=== PATIENT | male | born 1975 | race Hispanic/Latino ===

== ENCOUNTER 2018-03-15 07:50 | Inpatient (IN) | payer OTHER ==
--- NOTE | 2018-03-15 08:27 | ED PDOC ---
Arrival/HPI - General Chief Complaint: Weakness/Neurological Deficit Time Seen by Provider: 03/15/18 08:03 Historian: Patient - History of Present Illness Narrative History of Present Illness (Text): 03/15/18 08:15 42 year old male, whose PMH includes hypertension, diabetes, CVA and lupus, who presents to the emergency department s/p being diagnosed with TIA by medic in cruise [place]. Patient reports one day ago at 01:50 PM he began having slurred speech, left facial droop, left arm weakness, and left leg weakness. Patient explains he was returning from [facility] and captain was notified by his family member who explained to them he was returning "as fast as they can go". Family member states patient symptoms have improved compared to yesterday. Patient denies shortness of breath, chest pain, headache, abdominal pain, nausea, vomiting, diarrhea, dizziness, or other complaints. Time/Duration: 24 hours Symptom Onset: Sudden Symptom Course: Improving Past Medical History - Provider Review Nursing Documentation Reviewed: Yes - Travel History If Yes, travel location?: [facility] - Cardiac Hx Cardiac Disorders: Yes Hx Hypertension: Yes - Pulmonary Hx Respiratory Disorders: No - Neurological Hx Neurological Disorder: Yes HX Cerebrovascular Accident: Yes - HEENT Hx HEENT Disorder: No - Renal Hx Renal Disorder: No - Endocrine/Metabolic Hx Endocrine Disorders: Yes Hx Systemic Lupus Erythematosus: Yes - Hematological/Oncological Hx Blood Disorders: No - Integumentary Hx Dermatological Disorder: No - Musculoskeletal/Rheumatological Hx Musculoskeletal Disorders: No - Gastrointestinal Hx Gastrointestinal Disorders: No - Genitourinary/Gynecological Hx Genitourinary Disorders: No - Psychiatric Hx Psychophysiologic Disorder: No Hx Substance Use: No - Surgical History Other/Comment: Achilles tendon repair Family/Social History - Physician Review Nursing Documentation Reviewed: Yes Family/Social History: Unknown Family HX Smoking Status: Never Smoked Hx Alcohol Use: Yes Frequency of alcohol use: Socially Hx Substance Use: No Allergies/Home Meds Allergies/Adverse Reactions: Allergies No Known Allergies Allergy (Verified 03/15/18 12:36) Home Medications: Home Meds Medication Instructions Recorded Confirmed Lisinopril [Zestril] 40 mg PO DAILY 03/15/18 03/15/18 Allopurinol [Zyloprim] 80 mg PO DAILY 03/16/18 03/16/18 Aspirin [Ecotrin] 81 mg PO DAILY 03/16/18 03/16/18 Atorvastatin Calcium [Lipitor] 80 mg PO DIN 03/16/18 03/16/18 Clopidogrel [Plavix] 75 mg PO DAILY 03/16/18 03/16/18 Hydroxychloroquine Sulfate 100 mg PO DAILY 03/16/18 03/16/18 [Plaquenil] amLODIPine [Norvasc] 10 mg PO DAILY 03/16/18 03/16/18 Review of Systems - Physician Review All systems were reviewed & negative as marked: Yes - Review of Systems Respiratory: absent: SOB Cardiovascular: absent: Chest Pain Neurological: Focal Weakness (left sided arm and leg), Speech Changes (slurred speech), Facial Droop (left facial droop ). absent: Headache, Dizziness Physical Exam - Physical Exam Narrative Physical Exam (Text): 03/15/18 Gen: VS reviewed, alert, well developed, well nourished, nontoxic, mild distress. ENT: normal pharynx. Eye: EOMI, PERRL. Neck: no JVD, supple, no adenopathy. CV: regular rate, regular rhythm, no rubs, no murmur, no gallops, S1, S2, pulses equal and strong. Pulm: no distress, clear to auscultation, no wheeze, no rhonchi, breath sounds equal, no rales. Abd: soft, nontender, no guarding, no rebound, no rigidity, normal bowel sounds. Ext: no edema. Skin: good color, no rash, no cyanosis. Psych: responds appropriately to questions, normal affect. Neuro: (+) left lower facial droop. (+) motor left arm 3/5. (+) mild drift. (+) dysmetria. oriented x 3, CN2-12 intact grossly, motor intact, sensation intact. Vital Signs Reviewed: Yes Vital Signs Temp Pulse Resp BP Pulse Ox 03/15/18 12:38 97.9 F 65 18 114/68 03/15/18 10:46 65 18 114/68 98 03/15/18 10:26 72 114/78 03/15/18 07:50 97.9 F 66 18 153/106 H 99 Temperature: Afebrile Blood Pressure: Hypertensive Pulse: Regular Respiratory Rate: Normal Appearance: Positive for: Well-Appearing, Non-Toxic, Comfortable Pain Distress: None Mental Status: Positive for: Alert and Oriented X 3 Finger Stick Blood Glucose: 89 Medical Decision Making ED Course and Treatment: 03/15/18 Impression: 42 year old male with left lower facial droop, motor left arm 3/5, mild drift, and dysmetria complaining of TIA diagnosis given by cruise ship medic. Differential Diagnosis included but are not limited to: TIA Plan: -- CT head -- Labs -- Chest X-ray -- Reassess and disposition Progress Notes: 03/15/18 09:10 CT Head: Creator : Bree Parker MD FINDINGS: HEMORRHAGE:No intracranial hemorrhage. BRAIN:There are well-circumscribed focal low-attenuation areas in the right posterior frontal, anterior parietal lobe, basal ganglia, genu and posterior limb of internal capsule. There is cystic encephalomalacia in the right parietal and temporal lobes and smaller area of cystic encephalomalacia in the left posterior occipital lobe. There is no mass, mass effect or abnormal extra- axial fluid collection. VENTRICLES:The ventricles are normal in size, shape and configuration. CALVARIUM:The skull base and calvarium are normal. PARANASAL SINUSES:There is moderate chronic anterior ethmoid sinusitis. The remaining included paranasal sinuses are predominantly clear. MASTOID AIR CELLS:Predominantly clear. OTHER FINDINGS: None. IMPRESSION: Focal areas of low density in the right posterior frontal and anterior parietal lobes, basal ganglia, genu and posterior limb of internal capsule are most compatible with subacute right MCA territory infarctions. An MRI of the brain without intravenous contrast would be helpful for definitive evaluation and determining the age of the infarctions. Cystic encephalomalacia in the right parietal and temporal lobes, sequela of remote MCA territory infarction. Focal cystic encephalomalacia in the left posterior parietal lobe, sequela of remote left FIRE PREVENTION INSPECTOR territory infarction. Important findings were discussed with Dr. Dominik Samson in the ER on 03/15/2018 at 9:05 a.m. 03/15/18 09:[address] Quarles, who is aware of plan and accepts patient into admission. Would like ICU/admission and Dr. Best for neurology consultation. 03/15/18 09:[address] best, neurology, would like MRi brain, carotid doppler , agrees with aspirin for neuroprotection 03/15/18 09:40 Chest X-ray: Creator : Bree Parker MD FINDINGS: LUNGS: The lungs are well inflated and clear. PLEURA: No significant pleural effusion identified, no pneumothorax apparent. CARDIOVASCULAR: Normal. OSSEOUS STRUCTURES: No significant abnormalities. VISUALIZED UPPERABDOMEN: Normal. OTHER FINDINGS: None. IMPRESSION: No active pulmonary disease. 03/15/18 09:44 Case was discussed with the Oleo Hasher And Renderer, who is aware or plan and agrees with emergency department management. 03/15/18 10:02 patient seen by rip sawyer, admit deferred, patient can go to telemetry 03/15/18 11:11 patient was seen for delayed presentation for acute CVA. patient presented far out of the time window for thrombolysis or mechanical thrombectomy. patient to be admitted for comprehensive CVA workup. - Lab Interpretations Lab Results: 03/15/18 06:08 03/15/18 06:08 Lab Results 03/15/18 09:20: Blood Type A POSITIVE, Antibody Screen Negative, BBK History Checked No verified bt 03/15/18 08:04: POC Glucose (mg/dL) 89 03/15/18 07:00: Triglycerides 226 H, Cholesterol 170, LDL Cholesterol Direct 84 , HDL Cholesterol 28 L 03/15/18 07:00: Hemoglobin A1c 5.7 03/15/18 06:08: Sodium 142, Potassium 4.4, Chloride 112 H, Carbon Dioxide 19 L, Anion Gap 16, BUN 26 H, Creatinine 1.4, Est GFR ( Amer) > 60, Est GFR ( Non-Af Amer) 56, Random Glucose 101, Calcium 8.5, Total Bilirubin 0.4, AST 46, ALT 58 H, Alkaline Phosphatase 63, Troponin I < 0.01, Total Protein 6.6, Albumin 3.6, Globulin 3.0, Albumin/Globulin Ratio 1.2 03/15/18 06:08: PT 11.4, INR 0.99, APTT 32.7 03/15/18 06:08: WBC 5.2, RBC 3.59, Hgb 10.5 L, Hct 31.1 L, MCV 86.6, MCH 29.2, MCHC 33.8, RDW 13.4, Plt Count 146, MPV 9.8, Gran % 62.0, Lymph % (Auto) 26.7, [place] % (Auto) 7.6 H, Eos % (Auto) 3.5, Baso % (Auto) 0.2, Gran # 3.20, Lymph # ( Auto) 1.4, [place] # (Auto) 0.4, Eos # (Auto) 0.2, Baso # (Auto) 0.01 I have reviewed the lab results: Yes - RAD Interpretation Radiology Orders: 03/15/18 08:07 CHEST PORTABLE [RAD] Stat 03/15/18 08:09 Brain [HEAD W/O CONTRAST] [CT] Stat Market Research Interviewer: Radiologist - EKG Interpretation EKG Interpretation (Text): 03/15/18 11:38 0812: sinus rhythm at 63 bpm, nml qrs, nml axis, no acute sttw abn - Medication Orders Current Medication Orders: Discontinued Medications Amlodipine Besylate (Norvasc) 5 mg PO STAT STA Stop: 03/15/18 09:58 Last Admin: 03/15/18 10:26 Dose: 5 mg MAR Pulse and Blood Pressure Document 03/15/18 10:26 GMD (Rec: 03/15/18 10:29 GMD [id number]) Pulse Pulse Rate (60-90) 72 Blood Pressure Blood Pressure (100/60-150/90) 114/78 Amlodipine Besylate (Norvasc) 5 mg PO ONCE ONE Stop: 03/15/18 15:48 Last Admin: 03/15/18 16:11 Dose: 5 mg MAR Pulse and Blood Pressure Document 03/15/18 16:11 MF (Rec: 03/15/18 16:11 MF [id number]) Pulse Pulse Rate (60-90) 60 Blood Pressure Blood Pressure (100/60-150/90) 145/100 Amlodipine Besylate (Norvasc) 10 mg PO DAILY [facility] Last Admin: 03/16/18 09:52 Dose: 10 mg MAR Blood Pressure Document 03/16/18 09:52 UM (Rec: 03/16/18 09:52 UM [id number]) Blood Pressure Blood Pressure (100/60-150/90) 149/99 Aspirin (Aspirin) 325 mg PO STAT STA Stop: 03/15/18 09:40 Last Admin: 03/15/18 10:26 Dose: 325 mg Aspirin (Aspirin) 325 mg PO DAILY [facility] Last Admin: 03/16/18 09:52 Dose: 325 mg Atorvastatin Calcium (Lipitor) 80 mg PO DIN [facility] Last Admin: 03/15/18 17:42 Dose: 80 mg Clonidine HCl (Catapres) 0.1 mg PO BID [facility] Last Admin: 03/16/18 11:34 Dose: Clonidine HCl (Catapres) 0.1 mg PO STAT STA Stop: 03/16/18 11:27 Last Admin: 03/16/18 11:41 Dose: 0.1 mg MAR Pulse and Blood Pressure Document 03/16/18 11:41 UM (Rec: 03/16/18 11:42 UM [id number]) Pulse Pulse Rate (60-90) 66 Blood Pressure Blood Pressure (100/60-150/90) 142/100 Clopidogrel Bisulfate (Plavix) 75 mg PO DAILY [facility] Last Admin: 03/16/18 11:02 Dose: 75 mg Sodium Chloride (Sodium Chloride 0.45%) 1,000 mls @ 30 mls/hr IV .Q24H [facility] Last Admin: 03/15/18 10:29 Dose: 30 mls/hr eMAR Start Stop Document 03/15/18 10:29 GMD (Rec: 03/15/18 10:29 GMD [id number]) Intravenous Solution Start Date 03/15/18 Start Time 10:29 Pneumococcal Polyvalent Vaccine (Pneumovax 23 Vaccine) 0.5 ml IM .ONCE ONE Stop: 03/15/18 13:49 NIHSS Scale ([place]) Time Performed: 08:03 - How Severe is the Stoke Baseline Level of Consciousness: 0=Alert LOC to Questions: 0=Both comments correct LOC to commands: 0=Obeys both correctly Best Gaze: 0=Normal Visual: 0=No visual loss Facial: 2=Partial (lower face paralysis) Motor Arm - Left: 1=Drift noted before 10 sec Motor Arm - Right: 0=No drift Motor Leg - Left: 0=No drift Motor Leg - Right: 0=No drift Limb Ataxia: 1=Present Upper or Lower Sensory: 0=Normal Best Language: 0=No aphasia Dysarthia: 1=Mild to moderate slurring Extinction & Inattention (Neglect): 0=Normal, no object Score: 5 Risk Level: Mod Stroke Risk rTPA Inclusion/Exclusion - Refusal of Treatment Patient Refused Treatment: No - Inclusion Criteria for Altepase Patient is 18 years or Older: Yes The Clinical Diagnosis of Ischemic Stroke That is Causing a Potentially Disabling Neurological Deficit: Yes Time of Onset is Well Established to be Less Than 270 Minute Before Treatment Would Begin: No Risk/Benefit Discussed With Patient/Family Member Present: Yes - Scribe Statement The provider has reviewed the documentation as recorded by the Liz Shelton Provider Scribe Attestation: All medical record entries made by the Scribe were at my direction and personally dictated by me. I have reviewed the chart and agree that the record accurately reflects my personal performance of the history, physical exam, medical decision making, and the department course for this patient. I have also personally directed, reviewed, and agree with the discharge instructions and disposition. Disposition/Present on Arrival - Present on Arrival Any Indicators Present on Arrival: No History of DVT/PE: No History of Uncontrolled Diabetes: No Urinary Catheter: No History of Decub. Ulcer: No History Surgical Site Infection Following: None - Disposition Have Diagnosis and Disposition been Completed?: Yes Diagnosis: CVA (cerebral vascular accident) Disposition: HOSPITALIZED Disposition Time: 09:39 Patient Plan: ICU Condition: FAIR
[2018-03-15 08:35] LABS: ALB/GLOB RATIO 1.2 (1.1-1.8); ALBUMIN 3.6 g/dL (3.0-4.8); ALT/SGPT 58 U/L (7-56); AST/SGOT 46 U/L (17-59); BLOOD UREA NITROGEN 26 mg/dL (7-21); CALCIUM 8.5 mg/dL (8.4-10.5); GFR AFRICAN-AMERICAN > 60; GFR NON-AFRICAN AMERICAN 56
[2018-03-15 08:40] LABS: BASO # 0.01 K/mm3 (0.0-2.0); BASO % 0.2 % (0.0-3.0); EOS # 0.2 (0.0-0.7); EOS % 3.5 % (1.5-5.0); GRAN # 3.2 (1.4-6.5); HEMOGLOBIN 10.5 g/dL (14.0-18.0); LYMPH # 1.4 (1.2-3.4); LYMPH % 26.7 % (22.0-35.0); MEAN CELL VOLUME 86.6 fl (80.0-105.0); MEAN CORPUSCULAR HEMOGLOBIN 29.2 pg (25.0-35.0); MEAN CORPUSCULAR HGB CONC 33.8 g/dl (31.0-37.0); MEAN PLATELET VOLUME 9.8 fl (7.0-11.0); MONO # 0.4 (0.1-0.6); MONO % 7.6 % (1.0-6.0); RBC 3.59 10^6/uL (3.5-6.1); RED CELL DISTRIBUTION WIDTH 13.4 % (11.5-14.5); WHITE BLOOD COUNT 5.2 10^3/ul (4.5-11.0)
[2018-03-15 08:42] LABS: INR 0.99 (0.93-1.08); PARTIAL THROMBOPLASTIN TIME 32.7 Seconds (25.1-36.5); PROTHROMBIN TIME 11.4 SECONDS (9.4-12.5)
[2018-03-15 08:47] LABS: TROPONIN I < 0.01 ng/mL
--- NOTE | 2018-03-15 09:08 | CT ---
Date of service: 03/15/2018 PROCEDURE: CT HEAD WITHOUT CONTRAST. HISTORY: CVA COMPARISON: None available. TECHNIQUE: Axial computed tomography images were obtained through the head/brain without intravenous contrast. Radiation dose: Total exam DLP = 976.46 mGy-cm. This CT exam was performed using one or more of the following dose reduction techniques: Automated exposure control, adjustment of the mA and/or kV according to patient size, and/or use of iterative reconstruction technique. FINDINGS: HEMORRHAGE: No intracranial hemorrhage. BRAIN: There are well-circumscribed focal low-attenuation areas in the right posterior frontal, anterior parietal lobe, basal ganglia, genu and posterior limb of internal capsule. There is cystic encephalomalacia in the right parietal and temporal lobes and smaller area of cystic encephalomalacia in the left posterior occipital lobe. There is no mass, mass effect or abnormal extra-axial fluid collection. VENTRICLES: The ventricles are normal in size, shape and configuration. CALVARIUM: The skull base and calvarium are normal. PARANASAL SINUSES: There is moderate chronic anterior ethmoid sinusitis. The remaining included paranasal sinuses are predominantly clear. MASTOID AIR CELLS: Predominantly clear. OTHER FINDINGS: None. IMPRESSION: Focal areas of low density in the right posterior frontal and anterior parietal lobes, basal ganglia, genu and posterior limb of internal capsule are most compatible with subacute right MCA territory infarctions. An MRI of the brain without intravenous contrast would be helpful for definitive evaluation and determining the age of the infarctions. Cystic encephalomalacia in the right parietal and temporal lobes, sequela of remote MCA territory infarction. Focal cystic encephalomalacia in the left posterior parietal lobe, sequela of remote left VIBRATOR EQUIPMENT TESTER territory infarction. Important findings were discussed with Dr. Dominik Samson in the ER on 03/15/2018 at 9:05 a.m.
--- NOTE | 2018-03-15 09:36 | RAD ---
Date of service: 03/15/2018 HISTORY: CVA COMPARISON: No prior. FINDINGS: LUNGS: The lungs are well inflated and clear. PLEURA: No significant pleural effusion identified, no pneumothorax apparent. CARDIOVASCULAR: Normal. OSSEOUS STRUCTURES: No significant abnormalities. VISUALIZED UPPER ABDOMEN: Normal. OTHER FINDINGS: None. IMPRESSION: No active pulmonary disease.
[2018-03-15] MEDS ORDERED: Sodium Chloride 0.45% 1,000 ML IV SCH (10:00)
[2018-03-15 10:18] LABS: HDL CHOLESTEROL 28 mg/dL (29-60)
--- NOTE | 2018-03-15 10:18 | CP.PCM.CON ---
<Kings Boyer - Last Filed: 03/15/18 10:04> History of Present Illness - History of Present Illness History of Present Illness: [facility] PGY 2 ICU Consult Note for Dr. Guthrie Mr. Thapa is a 42yo male from [place] with a PMH of CVA, Lupus (not on meds), and HTN who [place] ED [place] via [place] ambulance for symptoms of stroke. ICU is consulted for CVA vs TIA symptoms. Patient states that while on the cruise, he started experiencing left sided weakness, slurring of speech, left sided facial droop and incoherence starting at 3pm one day ago. Family is bedside and they stated that he began shuffling his gait, limping and then developed the weakness, facial asymmetry and incoherence. Both patient and family state that his symptoms have been improving, including his motor skills, incoherence and asymmetry. Patient denies falls, head trauma, headaches, shortness of breath, tachycardia, chest pain or changes in vision. Family states that patient experienced a CVA 6 years ago due to what they say was a reaction to a combination of two meds, but there was no residual weakness and they don't know the exact details and the patient is unable to provide further details. 12-pt ROS was reviewed and is otherwise unremarkable. In ED, patient was given 325mg Aspirin. CT Head showed focal areas of low density in the right posterior frontal and anterior parietal lobes, basal ganglia, genu and posterior limb of internal capsule are most compatible with subacute right MCA territory infarctions. Cystic encephalomalacia in the right parietal and temporal lobes, sequela of remote MCA territory infarction. Focal cystic encephalomalacia in the left posterior parietal lobe, sequela of remote left THERAPEUTIC MENTOR territory infarction. Neuro (Dr. Cooper) was contacted and would like MRI brain, carotid doppler, agrees with aspirin for neuroprotection. PMH: as above PSH: achilles tendon repair Meds: Lisinopril Allergies: NKDA SHx: occasional ETOH use, denies tobacco or drug use. from [place], [place] FHx: non-contributory Review of Systems - Review of Systems All systems: reviewed and no additional remarkable complaints except (as per HPI ) Past Patient History - Past Medical History & Family History Past Medical History?: Yes Past Family History: Reviewed and not pertinent - Past Social History Smoking Status: Never Smoked Alcohol: Occasional Drugs: Denies - CARDIAC Hx Cardiac Disorders: Yes Hx Hypertension: Yes - PULMONARY Hx Respiratory Disorders: No - NEUROLOGICAL Hx Neurological Disorder: Yes HX Cerebrovascular Accident: Yes - HEENT Hx HEENT Problems: No - RENAL Hx Chronic Kidney Disease: No - ENDOCRINE/METABOLIC Hx Endocrine Disorders: Yes Hx Systemic Lupus Erythematosus: Yes - HEMATOLOGICAL/ONCOLOGICAL Hx Blood Disorders: No - INTEGUMENTARY Hx Dermatological Problems: No - MUSCULOSKELETAL/RHEUMATOLOGICAL Hx Musculoskeletal Disorders: No - GASTROINTESTINAL Hx Gastrointestinal Disorders: No - GENITOURINARY/GYNECOLOGICAL Hx Genitourinary Disorders: No - PSYCHIATRIC Hx Psychophysiologic Disorder: No Hx Substance Use: No - SURGICAL HISTORY Hx Orthopedic Surgery: Yes (achilles) Other/Comment: Achilles tendon repair Meds Allergies/Adverse Reactions: Allergies Allergy/AdvReac Type Severity Reaction Status Date / Time No Known Allergies Allergy Verified 03/15/18 08:00 - Medications Medications: Current Medications Sodium Chloride (Sodium Chloride 0.45%) 1,000 mls @ 30 mls/hr IV .Q24H [facility] Physical Exam - Constitutional Appears: Well, Non-toxic, No Acute Distress - Head Exam Head Exam: ATRAUMATIC, NORMAL INSPECTION Additional comments: left sided facial asymmetry noted on smiling - Eye Exam Eye Exam: EOMI, Normal appearance, PERRL - ENT Exam ENT Exam: Mucous Membranes Moist, Normal Exam - Neck Exam Neck exam: Positive for: Normal Inspection - Respiratory Exam Respiratory Exam: Clear to Auscultation Bilateral, NORMAL BREATHING PATTERN. absent: Rales, Rhonchi, Wheezes - Cardiovascular Exam Cardiovascular Exam: RRR, +S1, +S2. absent: Systolic Murmur - GI/Abdominal Exam GI & Abdominal Exam: Normal Bowel Sounds, Soft. absent: Distended, Tenderness - Extremities Exam Additional comments: Muscle Strength: RUE 5/5, LUE 3/5 w/ limited ROM, RLE 5/5, LLE 4/5 - Back Exam Back exam: NORMAL INSPECTION - Neurological Exam Neurological exam: Alert, CN II-XII Intact (grossly), Motor Sensory Deficit ( left sided (LUE>LLE)), Oriented x3 - Psychiatric Exam Psychiatric exam: Normal Mood - Skin Skin Exam: Normal Color Results - Vital Signs Recent Vital Signs: Last Vital Signs Temp 97.9 F 03/15/18 07:50 Pulse 66 03/15/18 07:50 Resp 18 03/15/18 07:50 BP 153/106 H 03/15/18 07:50 Pulse Ox 99 03/15/18 07:50 - Labs Result Diagrams: 03/15/18 06:08 03/15/18 06:08 Assessment & Plan - Assessment and Plan (Free Text) Assessment: 42yo male from [place] with a PMH of CVA, Lupus (not on meds), and HTN who presented for stroke symptoms that are resolving, indicating a TIA. CT Head showed subacute right MCA territory infarctions and remote R MCA and L THERAPEUTIC MENTOR territory infarcts. Patient is hemodynamically stable and neurologically improving. No ICU management is required at this time and recommend telemetry monitoring. Plan: Subacute right MCA territory infarct - ASA 325mg daily - MRI brain ordered - carotid US duplex ordered - Echo ordered - Lipid panel, A1C and TSH ordered - monitor vital signs - neurochecks - O2 PRN to maintain SaO2 >92% - no need need to start BP meds now considering subacute stroke to maintain cerebral perfusion - Neurology consulted, recs appreciated - Cardiology consulted, recs appreciated - PT eval ordered Dispo: recommend tele monitoring Case was reviewed and discussed with attending, Dr. Guthrie <Dieudonne Guthrie - Last Filed: 03/15/18 10:46> Meds - Medications Medications: Current Medications Aspirin (Aspirin) 325 mg PO DAILY [facility]PLAC[facility] Sodium Chloride (Sodium Chloride 0.45%) 1,000 mls @ 30 mls/hr IV .Q24H [facility] Last Admin: 03/15/18 10:29 Dose: 30 mls/hr Results - Vital Signs Recent Vital Signs: Last Vital Signs Temp 97.9 F 03/15/18 07:50 Pulse 72 03/15/18 10:26 Resp 18 03/15/18 07:50 BP 114/78 03/15/18 10:26 Pulse Ox 99 03/15/18 07:50 - Labs Result Diagrams: 03/15/18 06:08 03/15/18 06:08 Assessment & Plan - Assessment and Plan (Free Text) Plan: Patient seen and examined on rounds with resident, agree with note with following additions/exceptions: Patient is 42yo male with PMHx of Lupus, prior CVA, presented from cruise ship for L sided arm and leg weakness associated facial droop and dysarthria, that began yesterday at 1500 while on cruise. Examined by the medical staff on the cruise, given 2L NS bolus, and brought to [facility] today. Pt reports that he is able to regain most of his strength back in LUE/LLL in comparison to yesterday when symptoms began. Pt denies head trauma, falls, ELLIS, dizziness, CP, SOB, palpitations. No other constitutional symptoms. CT Head showed focal areas of low density in the right posterior frontal and anterior parietal lobes, basal ganglia, genu and posterior limb of internal capsule are most compatible with subacute right MCA territory infarctions. Pt not given tPA given the timing of presentation and onset of symptoms >12hr ago. Currently the patient is afebrile , BP stable, comfortable AAOx3, NAD, on exam RUE/RLE 5/5, LUE 3/5, LLE 4/5 ASA daily, MRI brain, Carotid Duplex, ECHO, Lipid Panel, HgbA1C, Neuro checks q4hr, neurology consult, cardiology consult, PT eval, admit to telemetry.
[2018-03-15 10:29] LABS: LDL CHOLESTEROL 84 mg/dL (0-129)
[2018-03-15 13:48] VITALS: BMI 31.3
[2018-03-15] MEDS ORDERED: Pneumococcal 23-Valent Vaccine IM ONE (13:48)
--- NOTE | 2018-03-15 14:35 | MRI ---
Date of service: 03/15/2018 PROCEDURE: MRI BRAIN WITHOUT CONTRAST HISTORY: cva COMPARISON: None. TECHNIQUE: Multiplanar, multisequence MR images of the brain were obtained without intravenous contrast enhancement. FINDINGS: HEMORRHAGE: None DWI: There is an acute infarct involving the right frontal lobe as well as the right external capsule and goldberg radiata. This is superimposed on a chronic infarct of the right temporal lobe with cystic encephalomalacia. BRAIN PARENCHYMA: As above VENTRICLES: Unremarkable. No hydrocephalus. CRANIUM: Unremarkable. ORBITS: Grossly unremarkable. PARANASAL SINUSES/MASTOIDS: Clear VASCULAR SYSTEM: Skull base flow voids intact. OTHER FINDINGS: None. IMPRESSION: There is an acute infarct involving the right frontal lobe as well as the right external capsule and goldberg radiata. This is superimposed on a chronic infarct of the right temporal lobe with cystic encephalomalacia.
--- NOTE | 2018-03-15 14:46 | US ---
PROCEDURE: Bilateral carotid artery duplex ultrasound HISTORY: Carotid stenosis TIA PHYSICIAN(S): Guille Camacho MD. TECHNIQUE: Duplex sonography and color-flow Doppler were used to evaluate the carotid bifurcations and limited segments of the vertebral arteries bilaterally. FINDINGS: There is mild smooth heterogeneous plaque noted at the carotid bifurcations bilaterally. The peak systolic velocity in the proximal right internal carotid artery is 63 cm/sec. This corresponds to a 20 to 39% proximal right ICA stenosis. Normal systolic velocities are noted in the proximal right external carotid artery. There is antegrade flow in the right vertebral artery. The peak systolic velocity in the proximal left internal carotid artery is 63 cm/sec. This corresponds to a 20 to 39% proximal left ICA stenosis. Normal systolic velocities are noted in the proximal left external carotid artery. There is antegrade flow in the left vertebral artery. IMPRESSION: 1. Bilateral 20-39% proximal ICA stenoses. 2. Antegrade flow in both vertebral arteries.
--- NOTE | 2018-03-15 15:47 | HP ---
HISTORY OF PRESENT ILLNESS: I was called down to the emergency room to see Nicolás Thapa who is [place] the cruise ship. Apparently, he is on the cruise ship where he had some weakness of the left arm and looks like he is having some slurred speech, left facial droop, left arm weakness, left leg weakness. He is returning from [facility] and he was in the hospital on the cruise ship and this happened yesterday. He is a 42-year-old man with past medical history of hypertension and diabetes who presents with this left-sided weakness, slurred speech, facial droop. He eventually got to our ER and we started our workup. He has got hypertension as we discussed. He has had a CVA. He has history of systemic lupus erythematosus history. He had Achilles tendon repair. FAMILY HISTORY: Diabetes in the family. SOCIAL HISTORY: Never smoked. Does drink alcohol socially. No drugs. ALLERGIES: NO KNOWN DRUG ALLERGIES. MEDICATIONS: He takes Zestril 40 daily. I put him on Norvasc, I think it is a stronger drug to get his blood pressure down, which is elevated. REVIEW OF SYSTEMS: He is alert. No shortness of breath. No chest pain. No cough. No palpitations. He has focal weakness of left arm and left leg, speech changes with slurred speech, facial droop on the left side. No headache or dizziness. No acute vision or hearing changes. No abdominal pain, nausea or vomiting. No problems urinating. No apparent skin issues that are aware of. PHYSICAL EXAMINATION: VITAL SIGNS: He has a 97.9 temperature, 66 pulse, 18 respiratory rate, 153/106 blood pressure, 99% O2 sat. I will give him some Norvasc 5. I will call Cardiology and Pulmonology. GENERAL: I saw him in the [facility]. He is alert, aware. He is very well-developed, well-nourished. HEENT: Extraocular muscles intact. Pupils equal, reactive to light. Throat is moist. NECK: Supple. No adenopathy. HEART: Regular rate. Normal S1, S2. LUNGS: Decreased breath sounds, clear to auscultation. No wheezes or rhonchi or rales. ABDOMEN: Soft, nontender. Positive bowel sounds. No guarding, no rebound, no rigidity. No CVA tenderness. SKIN: No apparent skin issues. His skin, for I could tell is intact. NEUROLOGIC: He is alert, not anxious. He has left-sided facial droop. His tongue points to the left, also his left arm is weak. Left hand is almost in a fist. Left leg is weak compared to the right. LYMPHATICS: Thyroid midline. No apparent lymphadenopathy. LABORATORY DATA: He had a chest x-ray that showed no active disease. He had a CAT scan of the head which showed focal areas of low density in the right posterior frontal and anterior parietal lobes, basal ganglia, genu and posterior limb of internal capsule are most compatible with subacute and right MCA territory infarctions, cystic encephalomalacia in the right parietal and temporal lobes, focal cystic encephalomalacia. We will get an MRI of the brain. He had blood tests done. Sodium 142, potassium 4.4, BUN 26, creatinine 1.4, GFR is 56, sugar is 89. Calcium is 8.5, total bili is 0.4, AST is 46, ALT is 58, alk phos 53. Troponin I is less than 0.01. Total protein 6.6, albumin is 3.65 and 3. INR is 0.99. White count 5.2, hemoglobin 10.5, hematocrit 31.1, platelets of 146. IMPRESSION: He will have a consult with Neurology, consult with Cardiology, put on Norvasc. He is going to have intensive care unit consult, physical therapy, oxygen. This is a history and physical for Nicolás Thapa who has a stroke and hypertensive. Chris Quarles DO
--- NOTE | 2018-03-15 16:59 | CON ---
DATE: 03/15/2018 CARDIOLOGY CONSULTATION HISTORY OF PRESENT ILLNESS: The patient is a 42-year-old male who [place] the cruise ship, who developed new neurologic deficits with left-sided weakness 24 hours ago while on the ship. PAST MEDICAL HISTORY: Notable for hypertension. No previous cardiac history. No previous myocardial infarction. FAMILY HISTORY: Notable for heart disease from his grandparents. SOCIAL HISTORY: No smoking. REVIEW OF SYSTEMS: A 14-point review of systems is reviewed in detail. No cardiac symptomatology is noted. PHYSICAL EXAMINATION: VITAL SIGNS: Blood pressure 114/68, heart rates in the 60s, normal sinus rhythm. NECK: Negative JVD. LUNGS: Without rales. HEART: S1, S2. EXTREMITIES: Without edema. EKG is normal sinus rhythm with no acute changes. No atrial fibrillation is noted. LABORATORY DATA: Troponin's are negative x1. BUN and creatinine unremarkable. Hemoglobin is 10.5. IMPRESSION: 1. Cerebrovascular accident. 2. History of hypertension. 3. No evidence for atrial fibrillation. 4. Anemia. 5. Weakness. Given these findings, we will rule out a structural heart issue that may be contributory to his CVA. Echocardiogram has been ordered. I have discussed our plans with the patient in detail. Guille Gibbons MD
--- NOTE | 2018-03-15 18:36 | CON ---
DATE: 03/15/2018 NEUROLOGY CONSULTATION CHIEF COMPLAINT: Left-sided weakness. 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 He underwent an MRI of the brain, which showed an acute infarct involving the right frontal lobe as well as the right external capsule and the goldberg radiata, superimposed underlying chronic infarct in the right temporal lobe with cystic encephalomalacia. He currently has left-sided weakness and a mild left facial droop, but is eating his food and drinking water without any difficulty. His carotid ultrasound showed 20% to 39% proximal ICA stenosis. He has not seen a neurologist back in [place] where . He has elevated triglycerides of 226 and HDL of 28 which is low and LDL of 84 and elevated TSH. His A1c is 5.7. He had elevated systolic and diastolic blood pressures. We will now manage his blood pressures to a point to keep systolic between 140s to 160s and diastolic 70s to 80s. PAST MEDICAL HISTORY: As above. SOCIAL HISTORY: No illicit drug use, smoking, or EtOH abuse. MEDICATIONS: Reviewed by nurse per reconciliation sheet. FAMILY HISTORY: Noncontributory. REVIEW OF SYSTEMS: A 14-point review of systems negative except as per the HPI. LABORATORY DATA: Sodium is 142, potassium 4.4, chloride of 112, carbon dioxide 19. BUN is 26, creatinine 1.4. Random glucose 101, hemoglobin A1c of 5.7. Triglycerides 226, cholesterol 170, LDL 84, HDL is 28 which is low. TSH is 5.12. PHYSICAL EXAMINATION: VITAL SIGNS: Temperature 98.6, pulse rate is 60, blood pressure 145/100, respiratory rate of 16, oxygen saturation 97% by room air. GENERAL: The patient is sitting up in bed, in no acute distress. HEENT: Atraumatic, normocephalic. PERRLA. Extraocular muscles intact. NECK: Supple. No JVD. No adenopathy noted. LUNGS: Clear to auscultation. No adventitious sounds. HEART: S1, S2. Normal rate and rhythm. No murmurs, rubs, or gallops. ABDOMEN: Soft, nontender, and nondistended. Bowel sounds are present. EXTREMITIES: No clubbing. No cyanosis. Peripheral pulses 2+ felt bilaterally. NEUROLOGIC: The patient is alert and oriented to person, place, month, and year. Speech is dysarthric, but no aphasia noted. Cranial nerves II through XII intact except for left facial droop. Sensory exam: Light touch, pinprick, proprioception, and vibration are intact. DTRs are 2+ throughout. Coordination: [id number] intact. Motor examination: Has left-sided pronator drift and left-sided 4+/5 weakness in upper and lower extremities when compared to the right which is 5/5. Toes are upgoing bilaterally. Gait is deferred for now. ASSESSMENT AND PLAN: This is a 42-year-old man with history of lupus, on hydroxychloroquine; history of cerebrovascular accident in the past in the right temporal lobe, which is seen on his MRI of the brain, which shows chronic cystic encephalomalacia, represents old infarct with no residual weakness; hypertension; dyslipidemia; who presented from the cruise ship with left-sided facial droop, slurred speech, and left-sided weakness, found to have an acute infarct in the right frontal as well as the right external capsule and goldberg radiata with superimposed underlying chronic infarction on the right temporal lobe with cystic encephalomalacia. His cerebrovascular accident is likely secondary to diffuse atherosclerotic disease as well as uncontrolled hypertension; in addition, possibly hypercoagulable given his history of lupus. At this time, we recommend; 1. Aspirin 81, Plavix 75, and atorvastatin 80 for 21 days and we will reduce the atorvastatin to 40 after that. 2. PT/OT and speech therapy. He will need acute rehab, possibly at [place], need to work with case management and manager social media to get him placed at acute rehab in [place]. 3. Needs PT assessment and clearance, needs a 4-wheeled walker, so he is able to fly back to [place] and could be stable for discharge on Monday. 4. Keep his systolic blood pressure between 140s to 160s and diastolic 70s to 80s and salt restriction diet. 5. Ordered hypercoagulable workup in terms of protein C, prothrombin, protein S, factor V Leiden, lupus anticoagulant, anticardiolipin, and homocystine level. The patient will follow up as an outpatient in regards to his lab work that has been ordered and follow up with a auto rebuilder in [place] as well as neurologist. Once again, thank you for this consult. Arie Cooper MD
--- NOTE | 2018-03-15 19:46 | CARD ---
APPROVED REPORT Date of service: 03/15/2018 EKG Measurement Heart [id number] <Conclusion> Normal sinus rhythm Normal ECG
[2018-03-16 01:11] VITALS: RESP 20
[2018-03-16 06:24] LABS: HEMOGLOBIN 11.1 g/dL (14.0-18.0); MEAN CORPUSCULAR HEMOGLOBIN 29.5 pg (25.0-35.0); MEAN CORPUSCULAR HGB CONC 33.9 g/dl (31.0-37.0); MEAN PLATELET VOLUME 9.8 fl (7.0-11.0); RBC 3.76 10^6/uL (3.5-6.1); RED CELL DISTRIBUTION WIDTH 13.4 % (11.5-14.5)
[2018-03-16 06:44] LABS: ALB/GLOB RATIO 1.2 (1.1-1.8); ALBUMIN 3.7 g/dL (3.0-4.8); ALT/SGPT 63 U/L (7-56); AST/SGOT 48 U/L (17-59); BLOOD UREA NITROGEN 22 mg/dL (7-21); CALCIUM 8.7 mg/dL (8.4-10.5); GFR AFRICAN-AMERICAN > 60; GFR NON-AFRICAN AMERICAN 56
[2018-03-16 09:28] VITALS: O2SAT 97
[2018-03-16 11:40] VITALS: BP 142/100; TEMP 98.4
[2018-03-16 11:45] VITALS: PULSE 66
--- NOTE | 2018-03-16 11:48 | PN ---
DATE: 03/16/2018 CARDIOLOGY FOLLOWUP SUBJECTIVE: The patient is in bed without distress. PHYSICAL EXAMINATION: VITAL SIGNS: Blood pressure is 136/96, heart rates in the 70s. No arrhythmias noted on telemetry. NECK: Negative JVD. LUNGS: Without rales. HEART: S1 and S2. EXTREMITIES: Without edema. LABORATORY DATA: Reviewed. Hemoglobin is 11.1. IMPRESSION: 1. Cerebrovascular accident. 2. Hypertension. 3. History of lupus. 4. Anemia. PLAN: Given these findings, the patient's CVA is unchanged. He will be assessed by Physical Therapy today. The patient refuses an echocardiogram. I have discussed with him in front of his family about the reasons for the echo, which may change his anticoagulant regimens to go home. I have discussed about the need to rule out thrombus. The patient still refuses at this time. We will not order an echocardiogram given the patient's wishes. Guille Gibbons MD
--- NOTE | 2018-03-17 00:51 | DS ---
HISTORY OF PRESENT ILLNESS: He came [place] from a [place] ship with a stroke with left-sided weakness. He also has very high blood pressure. On looking at the medications, I then ordered amlodipine. I also increased it from 5 to 10, and it is in the computer as a discontinue. I do not know if that happened, but I reordered the Norvasc 10 mg this morning. He is also on Plavix, aspirin, and Lipitor. He is comfortable in bed. He wants to go back to [place], I am waiting for physical therapy to see him, I do not know He walks well with a quad cane. I would discharge him to [place] where he is from. PHYSICAL EXAMINATION: VITAL SIGNS: He has a 98.1 temperature; 68 pulse; 136/96 blood pressure, I will make sure he gets his Norvasc 10 mg this morning; 20 respiratory rate, 96% O2 sat in room air. HEENT: His head is atraumatic, normocephalic. He has got left-sided facial droop. Tongue is pointing a little bit to the right. HEART: Regular rate. LUNGS: Decreased breath sounds, but clear. ABDOMEN: Soft. EXTREMITIES: Left-sided arm weakness, both legs are good and his right arm is good. MEDICATIONS: He is currently on aspirin, Lipitor, and Plavix. I will put him back on Norvasc 10 mg. I do not know why it was stopped. I did not do that. LABORATORY DATA: He has a 6 white count, 11.1 hemoglobin, 32.7 hematocrit with 157 platelets. He has a 141 sodium, potassium 4.2, BUN 22, creatinine 1.4, GFR is 56, sugar is 97, calcium is 8.7. Total bilirubin is 0.5, AST is 48, ALT is 63, alkaline phosphatase 62, total protein 6.7. Triglycerides are 226, cholesterol 170. TSH is 5.12, which is elevated. ASSESSMENT AND PLAN: I am not going to put him on anything for hypothyroid at this time. He is having followup with his doctors in [place], but let him know that he had a elevated TSH. We should ask him to get copy of the chart for him to take with him he does want to go back to [place] where his doctors are and he does have a stroke in the brain. He is given aspirin, Plavix, atorvastatin, and Norvasc at this time. He might need to be on Synthroid in the future. I am hoping that physical therapy says he could manage if he could be discharged today. Nicolás Thapa came here with an acute stroke from a cruise ship with left-sided weakness, hypertension, possibly hypothyroid and he will be on the aspirin, Lipitor, Plavix, and Norvasc and possibly Synthroid. When he goes back to [place], he gets that rechecked. Chris Quarles DO MTDD
[2018-03-19 23:03] LABS: THROMBIN CLOTTING TIME 19 sec (13-19)
== END 2018-03-16 14:50 | disposition home or self-care (01) | DRG 65 ==
LOC: ED 07:50 → ERH 09:28 → 2RNO 12:29
PROVIDERS: ADMIT Family Medicine; ATTEND Family Medicine
DX: I63.9 Cerebral infarction, unspecified (principal); I69.354 Hemiplegia and hemiparesis following cerebral infarction affecting left non-dominant side; I65.23 Occlusion and stenosis of bilateral carotid arteries; D64.9 Anemia, unspecified; E11.9 Type 2 diabetes mellitus without complications; E78.1 Pure hyperglyceridemia; G93.89 Other specified disorders of brain; I10 Essential (primary) hypertension; M32.9 Systemic lupus erythematosus, unspecified; R29.810 Facial weakness; Z79.02 Long term (current) use of antithrombotics/antiplatelets; Z79.82 Long term (current) use of aspirin; Z83.3 Family history of diabetes mellitus; E03.9 Hypothyroidism, unspecified